=== PATIENT | male | born 1935 | race Caucasian/White ===

== ENCOUNTER 2017-09-27 16:09 | Emergency (ER) | payer MEDICARE ==
[~2017-09-27] VITALS: Ht 180.3 cm; Wt 91.6 kg
[~2017-09-27 16:09] MED LIST: HYDROCODON-ACE1 EAC7 PO; LEVAQUIN 500 M500 M1 PO; LISINOPRIL-HCT1 EAC2 PO; LISINOPRIL20 MG; NORVASC2.5 MG; SINEMET 25-1001 EAC1; XARELTO10 MG PO; ZOCOR 20 MG TAB20 M1 PO
[2017-09-27] MEDS ORDERED: FISH OIL 1,001000 M2 PO (16:18)
[2017-09-27] MEDS ORDERED: COQ-10100 MG PO (16:18)
[2017-09-27 17:18] LABS: ABSOLUTE BASOPHILS 0.1 thou/uL (0.0-0.2); ABSOLUTE EOSINOPHILS 0.2 thou/uL (0.0-0.7); ABSOLUTE LYMPHOCYTES 1.6 thou/uL (0.8-5.3); ABSOLUTE MONOCYTES 0.6 thou/uL (0.0-1.2); ABSOLUTE NEUTROPHILS 4.3 thou/uL (1.6-8.1); BASOPHILS 2.2 %; EOSINOPHILS 3.1 %; HEMATOCRIT 44.8 % (42.0-52.0); HEMOGLOBIN 15.5 gm/dL (14.0-18.0); LYMPHOCYTES 23.6 %; MCH 33.1 pg (26.0-34.0); MCHC 34.7 g/dL (28.0-37.0); MCV 95.5 fL (80.0-100.0); MONOCYTES 8.2 %; MPV 8.1 fl. (7.2-11.1); NUCLEATED RBCS 0 /100WBC; PLATELET COUNT* 208 thou/uL (150-400); POLYS 62.9 %; RBC 4.69 mil/uL (4.50-6.00); RDW-CV 13.8 % (10.5-14.5); WBC 6.8 thou/uL (4.0-11.0)
[2017-09-27 17:25] LABS: ANION GAP 7 mmol/L (7-16); BUN 17 mg/dL (7-18); CALCIUM 8.8 mg/dL (8.5-10.1); CHLORIDE 104 mmol/L (98-107); CO2 31 mmol/L (21-32); CREATININE 1.2 mg/dL (0.6-1.3); GLUCOSE 141 mg/dL (70-99); POTASSIUM 4.1 mmol/L (3.5-5.1); SODIUM 142 mmol/L (136-145)
[2017-09-27 17:32] LABS: ALBUMIN 3.7 g/dL (3.4-5.0); ALKALINE PHOSPHATASE 73 U/L (46-116); SGOT 24 U/L (15-37); SGPT 44 U/L (30-65); TOTAL BILIRUBIN 0.9 mg/dL (<0.1-1.0); TOTAL PROTEIN 7.7 g/dL (6.4-8.2); TROPONIN-I LEVEL <0.06 ng/mL (<0.06)
[2017-09-27 17:43] LABS: BE 1.7 mmol/L (-2 to +3); HCO3 25.1 mmol/L (22.0-26.0); PCO2 35.9 mmHg (35.0-45.0); PO2 94.5 mmHg (75.0-100.0); pH 7.463 (7.340-7.450)
[2017-09-27 18:51] LABS: URINE BILIRUBIN NEGATIVE (Negative); URINE BLOOD TRACE (Negative); URINE CLARITY CLEAR; URINE COLOR YELLOW; URINE GLUCOSE-RANDOM NEGATIVE (Negative); URINE KETONES NEGATIVE (Negative); URINE LEUKOCYTES-REFLEX NEGATIVE (Negative); URINE NITRITE-REFLEX NEGATIVE (Negative); URINE PROTEIN NEGATIVE (Negative); URINE SPECIFIC GRAVITY 1.025 (1.005-1.030); URINE UROBILINOGEN 0.2 E.U./dl (0.2-1.0)
[2017-09-27 19:12] LABS: NT-PRO BRAIN NAT PEPTIDE 78 pg/mL (<300); TROPONIN-I LEVEL <0.06 ng/mL (<0.06)
[2017-09-27] MEDS ORDERED: TESSALON PERLE100 MG PO (20:30)
[2017-09-27 20:50] VITALS: BP 158/80
--- NOTE | 2017-09-28 17:49 | EKG ---
[place] [address] ELECTROCARDIOGRAM REPORT Name: GERALDINE SALMERON Room: [facility]#: [id number] Admission: 09/27/17 Attend Phys: Discharge: 09/27/17 Date of : 39 Report #: [id number] THIS REPORT FOR: //name// [facility] ED Test Date: 2017-09-27 Test Time: 16:19:05 Pat Name: GERALDINE SALMERON Department: Room: Gender: M Assisted Living Administrator: BARRETT : 1935 Requested By: Ct Ott Order Number: [id number] Melvin MD: Osmar Soto Measurements Intervals [place] Rate: 69 P: GA: QRS: 44 QRSD: 96 T: 43 QT: 515 QTc: 552 Interpretive Statements Sinus rhythm Prolonged QT interval Baseline wander in lead(s) V2,V3 Compared to ECG 07/12/2016 09:03:58 Prolonged QT interval now present Electronically Signed On 09-28-2017 17:49:20 CDT by Osmar Soto [email or web address] <ELECTRONICALLY SIGNED> By: Osmar Soto MD, [facility] 09/28/17 1749 1619 18 Osmar Soto MD, FACC /EPI
--- NOTE | 2017-09-28 17:51 | EKG ---
[place] [address] ELECTROCARDIOGRAM REPORT Name: GERALDINE SALMERON Room: [facility]#: [id number] Admission: 09/27/17 Attend Phys: Discharge: 09/27/17 Date of : 39 Report #: [id number] THIS REPORT FOR: //name// [facility] ED Test Date: 2017-09-27 Test Time: 20:19:26 Pat Name: GERALDINE SALMERON Department: Room: Gender: M Development Planner: NISHANT : 1935 Requested By: Richie Boston Order Number: [id number] MD: Osmar Soto Measurements Intervals [place] Rate: 75 P: 62 SD: 159 QRS: 19 QRSD: 98 T: 0 QT: 396 QTc: 443 Interpretive Statements Sinus rhythm Compared to ECG 07/12/2016 09:03:58 No significant changes Electronically Signed On 09-28-2017 17:51:18 CDT by Osmar Soto [email or web address] <ELECTRONICALLY SIGNED> By: Osmar Soto MD, [facility] 09/28/17 1751 18 18 Osmar Soto MD, FACC /EPI
== END 2017-09-27 20:51 | disposition home or self-care (01) ==
LOC: M.ERS 16:09
PROVIDERS: Personal Emergency Response Attendant
DX: R06.00 Dyspnea, unspecified (principal); R05 Cough; I10 Essential (primary) hypertension

== ENCOUNTER 2018-06-16 00:10 | Observation (INO) | payer MEDICARE ==
[~2018-06-16] VITALS: Ht 180.3 cm; Wt 84.8 kg
[~2018-06-16 00:10] MED LIST changes: +COQ-10100 MG PO; +FISH OIL 1,001000 M2 PO; +TESSALON PERLE100 MG PO
[2018-06-16 00:16] VITALS: BP 174/76
[2018-06-16] MEDS ORDERED: ASPIR 8181 MG PO (00:30)
[2018-06-16] MEDS ORDERED: VITAMIN D3400 UNIT PO (00:31)
[2018-06-16] MEDS ORDERED: PROBIOTIC1 EAC4 PO (00:33)
[2018-06-16 00:34] LABS: ABSOLUTE BASOPHILS 0.1 thou/uL (0.0-0.2); ABSOLUTE EOSINOPHILS 0.2 thou/uL (0.0-0.7); ABSOLUTE LYMPHOCYTES 1.4 thou/uL (0.8-5.3); ABSOLUTE MONOCYTES 0.5 thou/uL (0.0-1.2); ABSOLUTE NEUTROPHILS 5.9 thou/uL (1.6-8.1); BASOPHILS 1.3 %; EOSINOPHILS 2.7 %; HEMATOCRIT 41.6 % (42.0-52.0); HEMOGLOBIN 14.7 gm/dL (14.0-18.0); LYMPHOCYTES 17.3 %; MCH 34.8 pg (26.0-34.0); MCHC 35.4 g/dL (28.0-37.0); MCV 98.1 fL (80.0-100.0); MONOCYTES 6.2 %; MPV 7.8 fl. (7.2-11.1); NUCLEATED RBCS 0 /100WBC; PLATELET COUNT* 202 thou/uL (150-400); POLYS 72.5 %; RBC 4.24 mil/uL (4.50-6.00); RDW-CV 14.6 % (10.5-14.5); WBC 8.2 thou/uL (4.0-11.0)
[2018-06-16] MEDS ORDERED: ROLAIDS CHEWAB1 EAC1 PO (00:34)
[2018-06-16] MEDS ORDERED: BILBERRY100 MG PO (00:35)
[2018-06-16] MEDS ORDERED: LUTEIN40 MG PO (00:35)
[2018-06-16] MEDS ORDERED: FISH OIL 1,0001 EAC1 PO (00:37)
[2018-06-16 00:48] LABS: PROTIME 10.7 Seconds (9.20-11.50)
[2018-06-16 01:41] LABS: ANION GAP 10 mmol/L (7-16); BUN 24 mg/dL (7-18); CALCIUM 8.9 mg/dL (8.5-10.1); CHLORIDE 106 mmol/L (98-107); CO2 25 mmol/L (21-32); CREATININE 1.1 mg/dL (0.6-1.3); GLUCOSE 149 mg/dL (70-99); POTASSIUM 3.7 mmol/L (3.5-5.1); SODIUM 141 mmol/L (136-145)
[2018-06-16 01:52] LABS: ALBUMIN 3.4 g/dL (3.4-5.0); ALKALINE PHOSPHATASE 87 U/L (46-116); MAGNESIUM 1.9 mg/dL (1.8-2.4); NT-PRO BRAIN NAT PEPTIDE 272 pg/mL (<300); SGOT 56 U/L (15-37); SGPT 112 U/L (30-65); TOTAL BILIRUBIN 1.1 mg/dL (<0.1-1.0); TOTAL PROTEIN 7.5 g/dL (6.4-8.2); TROPONIN-I LEVEL <0.06 ng/mL (<0.06)
[2018-06-16 03:30] VITALS: BP 160/82
--- NOTE | 2018-06-16 04:39 | NUR ---
82 Y/O MALE ADMITTED WITH CHEST PRESSURE TO ROOM 219 AT 0345. PT DENIES PAIN, N/V/D, DIZZINESS, OR SOA AT THIS TIME. PT IS TRACING NSR ON MONITOR. HX OF PARKINSONS, HTN, HLD, RIGHT HIP REPLACEMENT. REFER TO CHARTING FOR FURTHER DETAILS. FALL PRECAUTIONS IN PLACE. CLWR.
[2018-06-16 08:00] VITALS: BP 173/77
[2018-06-16 12:10] VITALS: BP 163/60
--- NOTE | 2018-06-16 14:00 | EKG ---
[place] [address] ELECTROCARDIOGRAM REPORT Name: GERALDINE SALMERON Room: [address] M.R.#: [id number] Admission: 06/16/18 Attend Phys: Ian Wiley MD Discharge: Date of : 39 Report #: [id number] THIS REPORT FOR: //name// [facility] ED Test Date: 2018-06-16 Test Time: 00:22:51 Pat Name: GERALDINE SALMERON Department: Room: [facility] Gender: M Secondary Special Education Teacher: Kelsy TURNER : 1935 Requested By: Laya Franklin Order Number: [id number] MD: Geraldine Coffey Measurements Intervals [place] Rate: 60 P: 49 AR: 165 QRS: 14 QRSD: 93 T: -4 QT: 398 QTc: 398 Interpretive Statements Sinus rhythm Compared to ECG 09/27/2017 20:19:26 No significant changes Electronically Signed On 06-16-2018 14:00:08 NATURAL RESOURCE TECHNICIAN by Geraldine Coffey [email or web address] <ELECTRONICALLY SIGNED> By: Geraldine Coffey MD, [facility] 06/16/18 1400 Geraldine Coffey MD, FACC /EPI
[2018-06-16 14:02] LABS: URINE BILIRUBIN NEGATIVE (Negative); URINE BLOOD NEGATIVE (Negative); URINE CLARITY CLEAR; URINE COLOR YELLOW; URINE GLUCOSE-RANDOM NEGATIVE (Negative); URINE KETONES NEGATIVE (Negative); URINE LEUKOCYTES-REFLEX NEGATIVE (Negative); URINE NITRITE-REFLEX NEGATIVE (Negative); URINE PROTEIN NEGATIVE (Negative); URINE SPECIFIC GRAVITY 1.025 (1.005-1.030); URINE UROBILINOGEN 0.2 E.U./dl (0.2-1.0)
--- NOTE | 2018-06-16 14:21 | 2DMMODE ---
[place] [address] 2 D/M-MODE ECHOCARDIOGRAM Name: GERALDINE SALMERON Room: [address] Kin#: [id number] Admission: 06/16/18 Attend Phys: Ian Wiley, Discharge: Date of : 39 Date of Service: 06/16/18 1420 Report #: [id number] THIS REPORT FOR: //name// APPROVED REPORT Study performed: 06/16/2018 11:53:50 EXAM: Comprehensive 2D, Doppler, and color-flow Echocardiogram Patient Location: In-Patient Room #: 219 Status: routine BSA: 2.05 HR: 70 bpm BP: 173/77 mmHg Rhythm: NSR Other Information Study Quality: Good Indications Arrhythmia Chest Pain 2D Dimensions IVSd: 10.58 (7-11mm) LVOT Diam: 19.86 (18-24mm) LVDd: 44.78 mm PWd: 8.60 (7-11mm) Ascending Ao: 34.70 (22-36mm) LVDs: 26.65 (25-40mm) Aortic Root: 33.99 mm Volumes Left Atrial Volume (Systole) LA ESV Index: 27.20 mL/m2 Aortic Valve AoV Peak Yair.: 1.36 m/s AO Peak Gr.: 7.36 mmHg LVOT Max P.89 mmHg AO Mean Gr.: 3.65 mmHg LVOT Mean P.73 mmHg LVOT Max V: 1.11 m/s AO V2 VTI: 25.31 cm LVOT Mean V: 0.58 m/s MARCIN (VTI): 2.83 cm2 LVOT V1 VTI: 23.17 cm AI [place]: 1.24 m/s2 AI PHT: 605.10 [place] [address] 2 D/M-MODE ECHOCARDIOGRAM Name: GERALDINE SALMERON Room: [address] M.R.#: [id number] Admission: 06/16/18 Attend Phys: Ian Wiley, Discharge: Date of : 39 Date of Service: 06/16/18 1420 Report #: [id number] E/A Ratio: 1.30 MV Decel. Time: 186.47 ms MV E Max Yair.: 0.70 m/s MV PHT: 54.08 ms MVA (PHT): 4.07 cm2 TDI E/Lateral E': 5.83 E/Medial E': 7.00 Medial E' Yair.: 0.10 m/s Lateral E' Yair.: 0.12 m/s Pulmonary Valve PV Peak Yair.: 0.90 m/s PV Peak Gr.: 3.23 mmHg Tricuspid Valve RAP Estimate: 5.00 mmHg TR Peak Gr.: 26.35 mmHg RVSP: 31.00 mmHg PA Pressure: 31.00 mmHg Left Ventricle The left ventricle is normal size. There is normal LV segmental wall motion. There is normal left ventricular wall thickness. Left ventricular systolic function is normal. The left ventricular ejection fraction is within the normal range. LVEF is 60-65%. The left ventricular diastolic function is normal. Right Ventricle The right ventricle is normal size. The right ventricular systolic function is normal. Atria The left atrium size is normal. The right atrium size is normal. Aortic Valve Mild aortic valve sclerosis. Trace aortic regurgitation. There is no aortic valvular stenosis. Mitral Valve The mitral valve is normal in structure. Mild mitral regurgitation. No evidence of mitral valve stenosis. Tricuspid Valve The tricuspid valve is normal in structure. Mild tricuspid regurgitation. estimate pa pressure 30 [place] [address] 2 D/M-MODE ECHOCARDIOGRAM Name: GERALDINE SALMERON Leeroy Room: [address]#: [id number] Admission: 06/16/18 Attend Phys: Ian Wiley, Discharge: Date of : 39 Date of Service: 06/16/18 1420 Report #: [id number] Pulmonic Valve The pulmonary valve is normal in structure. Mild pulmonic regurgitation. Great Vessels The aortic root is normal in size. IVC is normal in size and collapses >50% with inspiration. Pericardium There is no pericardial effusion. <Conclusion> LVEF is 60-65%. Mild aortic valve sclerosis. Mild mitral regurgitation. Mild tricuspid regurgitation. estimate pa pressure 30 mm Hg <ELECTRONICALLY SIGNED> By: Geraldine Coffey MD, FACC 06/16/18 1420 1420 1420 Geraldine Coffey MD, FACC /INF
[2018-06-16 15:10] VITALS: BP 163/60
--- NOTE | 2018-06-16 16:04 | NUR ---
ORDER RECEIVED TO DISCHARGE [facility] IN THE CARE OF HIS . MED REC, MEDICATION EDUCATION, STROKE EDUCATION, AND NEED FOR FOLLOW UP WITH DR LEMOS COVERED AND STATED UNDERSTOOD BY PATIENT AND SPOUSE. HOURLY ROUNDING COMPLETED FOR PATIENT SAFETY AND ZAYDA HAD PROGRESSED TOWARDS GOALS. IV AND TELEMETRY PACK REMOED. PATIENT AND SPOUSE GIVEN AMPLE TIME FOR ANY QUESTIONS REGARDING CARE AND MEDICATIONS. DISCHARGE TOME OF 16:00. PATIENT TRASNPORTED VIA HIS WHEELCHAIR BY NURSIN STAFF WITH SPOUSE PRESENT TO AWAITING CAR.
--- NOTE | 2018-06-21 16:38 | 24HR ---
[place] [address] HOLTER MONITOR REPORT Name: GERALDINE SALMERON Room: [address]#: [id number] Admission: 06/16/18 Attend Phys: Ian Wiley, Discharge: 06/16/18 Date of : 39 Date of Service: 06/21/18 1151 Report #: [id number] THIS REPORT FOR: //name// [facility] Test Date: 2018-06-21 Test Time: 11:51:41 Pat Name: GERALDINE SALMERON Department: Room: Gender: M Bumper Straightener: : 1935 Requested By: Geraldine Garza Order Number: [id number] Melvin ZAMORA: Domingo Agarwal Interpretive Statements Sinus rhythm at rates of 47-154, average 66 Frequent pac's with 3-8 beat runs of svt Moderate number of pvc's with rare couplets, no examples of ventricular tachycardia No significant pauses. Electronically Signed On 06-21-2018 16:38:27 SUPERVISOR LOOPING by Domingo Agarwal [email or web address] <ELECTRONICALLY SIGNED> By: Domingo Agarwal MD, [facility] 06/21/18 1638 1151 1151 Domingo Agarwal MD, [facility] /EPI
== END 2018-06-16 16:00 | disposition home or self-care (01) ==
LOC: M.ERS 00:10 → M.TBA-ER 02:27 → M.2W 02:27
PROVIDERS: Emergency Medicine; ADMIT Internal Medicine
DX: R00.2 Palpitations (principal); J98.11 Atelectasis; G20 Parkinson's disease; I12.9 Hypertensive chronic kidney disease with stage 1 through stage 4 chronic kidney disease, or unspecified chronic kidney disease; N18.2 Chronic kidney disease, stage 2 (mild); R07.9 Chest pain, unspecified; E78.5 Hyperlipidemia, unspecified; E78.00 Pure hypercholesterolemia, unspecified; Z79.82 Long term (current) use of aspirin; Z98.890 Other specified postprocedural states; Z79.899 Other long term (current) drug therapy

== ENCOUNTER → 2019-04-25 | Outpatient (CLI) | payer MEDICARE ==
[~2019-04-25] MED LIST changes: +ASPIR 8181 MG PO; +BILBERRY100 MG PO; +FISH OIL 1,0001 EAC1 PO; +LUTEIN40 MG PO; +PROBIOTIC1 EAC4 PO; +ROLAIDS CHEWAB1 EAC1 PO; +VITAMIN D3400 UNIT PO
== END ==
LOC: M.RAD 16:06
DX: M41.86 Other forms of scoliosis, lumbar region (principal); M51.36 Other intervertebral disc degeneration, lumbar region; I70.0 Atherosclerosis of aorta; R05 Cough